=== PATIENT | female | born 1990 | race Caucasian/White ===

== ENCOUNTER 2016-09-23 15:08 | Outpatient (RCR) | payer OTHER ==
[~2016-09-23 15:08] MED LIST: LEXAPRO 5MG5 MG PO; MELATONIN3 MG PO; NUVARING VAG RING VG
== END 2016-12-22 ==
LOC: WSOH
DX: S61.411A Laceration without foreign body of right hand, initial encounter (principal); W18.39XA Other fall on same level, initial encounter; Y93.K9 Activity, other involving animal care

== ENCOUNTER 2016-09-28 15:07 | Outpatient (RCR) | payer OTHER | END 2016-12-27 | LOC: WSOH | DX: S61.200A Unspecified open wound of right index finger without damage to nail, initial encounter (principal); W53.11XA Bitten by rat, initial encounter; Y99.0 Civilian activity done for income or pay; Z90.721 Acquired absence of ovaries, unilateral ==